=== PATIENT | male | born 1935 | race Caucasian/White ===

== ENCOUNTER 2019-01-08 19:48 | Inpatient (IN) | payer OTHER ==
[~2019-01-08] VITALS: Ht 170.2 cm; Wt 82.7 kg
[~2019-01-08 19:48] MED LIST: COU5T PO; DILT180C66 PO; LISI-600 PO
[2019-01-08] MEDS ORDERED: furosemide 20MG tablet PO ONE (20:50)
[2019-01-08 21:10] LABS: BASOPHILS # (AUTO) 0.1 X10'3 (0-0.2); BASOPHILS % (AUTO) 0.8 % (0-1); EOSINOPHILS # (AUTO) 0.3 X10'3 (0-0.9); EOSINOPHILS % (AUTO) 2.3 % (0-6); HEMATOCRIT 41.5 % (42.0-52.0); HEMOGLOBIN 13.8 g/dl (14.0-17.9); LYMPHOCYTES # (AUTO) 1.4 X10'3 (1.1-4.8); LYMPHOCYTES % (AUTO) 12.5 % (21-51); MEAN CORPUSCULAR HEMOGLOBIN 31.1 PG (27.0-31.0); MEAN CORPUSCULAR HGB CONC 33.3 g/dL (33.0-36.5); MEAN CORPUSCULAR VOLUME 93.4 FL (78-98); MEAN PLATELET VOLUME 7.7 FL (7.4-10.4); MONOCYTES # (AUTO) 1.2 X10'3 (0-0.9); MONOCYTES % (AUTO) 10.4 % (2-12); NEUTROPHILS # (AUTO) 8.5 X10'3 (1.8-7.7); PLATELET COUNT 238 X10'3 (140-440); RED BLOOD COUNT 4.44 X10'6 (4.70-6.10); RED CELL DISTRIBUTION WIDTH 14.2 % (11.5-14.5); WHITE BLOOD COUNT 11.5 X10'3 (4.5-11.0)
[2019-01-08 21:15] LABS: ALANINE AMINOTRANSFERASE 48 U/L (12-78); ALBUMIN 4.2 G/DL (3.4-5.0); ALKALINE PHOSPHATASE 69 IU/L (46-116); ANION GAP 11 (8-16); ASPARTATE AMINO TRANSFERASE 48 U/L (10-37); BILIRUBIN,TOTAL 1.3 MG/DL (0.1-1.0); BLOOD UREA NITROGEN 18 MG/DL (7-18); BUN/CREATININE RATIO 14.2 (5.4-32.0); CALCIUM 8.4 MG/DL (8.5-10.1); CHLORIDE 99 MMOL/L (99-107); CREATININE 1.27 MG/DL (0.60-1.10); GLUCOSE 123 MG/DL (70-104); POTASSIUM 4.4 MMOL/L (3.5-5.1); SODIUM 135 MMOL/L (135-145); TOTAL CARBON DIOXIDE 24.6 MMOL/L (24-32); TOTAL PROTEIN 8.4 G/DL (6.4-8.2); eGFR 54 ML/MIN
[2019-01-08 21:23] LABS: TROPONIN I < 0.04 NG/ML (0.0-0.05)
[2019-01-08 21:26] LABS: CLARITY,URINE CLEAR (Clear); COLOR,URINE YELLOW (Yellow); GLUCOSE, URINE NEGATIVE (Neg); KETONES,URINE TRACE mg/dl (Neg); LEUKOCYTE ESTERASE ,URINE NEGATIVE (Neg); NITRITES, URINE NEGATIVE (Neg); OCCULT BLOOD,URINE NEGATIVE (Neg); PROTEIN,URINE TRACE mg/dl (Neg); UROBILINOGEN,URINE 0.2 E.U/dL (0.2-1.0)
[2019-01-08 21:37] LABS: UA COLLECTION TYPE CLN CATCH MIDSTREAM
[2019-01-08] MEDS ORDERED: magnesium hydroxide 30ml (MOM) UD suspension PO PRN (21:40)
[2019-01-08] MEDS ORDERED: potassium Cl 20 mEq SR tablet PO PRN ×2 (21:40)
[2019-01-08] MEDS ORDERED: acetaminophen 325mg tablet PO PRN ×2 (21:40)
[2019-01-08] MEDS ORDERED: magnesium Cl slow-release 64mg tablet PO PRN (21:40)
[2019-01-08] MEDS ORDERED: magnesium 4gm in 100ml NS 100 ML IV PRN (21:40)
[2019-01-08] MEDS ORDERED: ondansetron/PF 4mg/2ml inj IV PRN (21:40)
[2019-01-08] MEDS ORDERED: magnesium 2GM in 50ml NS 50 ML IV PRN (21:40)
[2019-01-08] MEDS ORDERED: mag hydrox/Alum hydrox/simeth 30ml oral suspension PO PRN (21:40)
[2019-01-08] MEDS ORDERED: nitroGLYCERIN 0.4mg SUBLingual tab SL PRN (21:40)
[2019-01-08] MEDS ORDERED: potassium CL 10mEq/100ml bag 100 ML IV PRN ×2 (21:40)
[2019-01-08 21:41] LABS: BACTERIA,URINE NONE SEEN /HPF (Neg); RBC,URINE NONE SEEN /HPF (0-2); SQUAMOUS EPITHELIAL CELL,UR NONE SEEN /LPF (FEW); WBC,URINE 0-4 /HPF (0-4)
[2019-01-08 21:49] LABS: D-DIMER 0.83 MG/L FEU (0-0.50)
[2019-01-08] MEDS ORDERED: DIGO125T PO (22:54)
[2019-01-08] MEDS ORDERED: FURO-150 PO (22:54)
[2019-01-08] MEDS ORDERED: CEFU500T66 PO (22:54)
[2019-01-08] MEDS ORDERED: ESCI5TAB12 PO (22:54)
[2019-01-08] MEDS ORDERED: METO-467 PO (22:54)
[2019-01-09 00:25] VITALS: BP 153/93
--- NOTE | 2019-01-09 00:25 | NUR ---
PATIENT ADMITTED TO ROOM 354A FROM ER FOR ACUTE CHF. PLACED COMFORTABLE IN BED. VITAL SIGNS TAKEN AND RECORDED.
--- NOTE | 2019-01-09 03:41 | NUR ---
CALLED DR. SHORT ABOUT PATIENT WITH EPISODE OF 3BEAT RUN OF VTACH X2 VITAL SIGNS BP 108/80 HR 71 RR 20 SAT 92 AT 2L NO NEW ORDERS MADE JUST CONTINUE TELE MONITORING.
[2019-01-09 05:29] LABS: BASOPHILS # (AUTO) 0.1 X10'3 (0-0.2); BASOPHILS % (AUTO) 0.7 % (0-1); EOSINOPHILS # (AUTO) 0.2 X10'3 (0-0.9); EOSINOPHILS % (AUTO) 1.5 % (0-6); HEMATOCRIT 36.3 % (42.0-52.0); HEMOGLOBIN 12.1 g/dl (14.0-17.9); LYMPHOCYTES # (AUTO) 1.3 X10'3 (1.1-4.8); LYMPHOCYTES % (AUTO) 11.3 % (21-51); MEAN CORPUSCULAR HEMOGLOBIN 31.2 PG (27.0-31.0); MEAN CORPUSCULAR HGB CONC 33.3 g/dL (33.0-36.5); MEAN CORPUSCULAR VOLUME 93.8 FL (78-98); MEAN PLATELET VOLUME 7.9 FL (7.4-10.4); MONOCYTES # (AUTO) 1.2 X10'3 (0-0.9); MONOCYTES % (AUTO) 10.7 % (2-12); NEUTROPHILS # (AUTO) 8.8 X10'3 (1.8-7.7); NEUTROPHILS % (AUTO) 75.8 % (42-75); PLATELET COUNT 207 X10'3 (140-440); RED BLOOD COUNT 3.87 X10'6 (4.70-6.10); RED CELL DISTRIBUTION WIDTH 14.1 % (11.5-14.5); WHITE BLOOD COUNT 11.7 X10'3 (4.5-11.0)
[2019-01-09 05:44] LABS: ALBUMIN 3.7 G/DL (3.4-5.0); ANION GAP 11 (8-16); BLOOD UREA NITROGEN 17 MG/DL (7-18); BUN/CREATININE RATIO 14.7 (5.4-32.0); CHLORIDE 102 MMOL/L (99-107); CREATININE 1.16 MG/DL (0.60-1.10); GLUCOSE 94 MG/DL (70-104); MAGNESIUM 1.9 MG/DL (1.5-2.4); POTASSIUM 4.2 MMOL/L (3.5-5.1); SODIUM 137 MMOL/L (135-145); TOTAL CARBON DIOXIDE 24.4 MMOL/L (24-32); eGFR 60 ML/MIN
--- NOTE | 2019-01-09 06:30 | NUR ---
Problems reprioritized. Patient report given, questions answered & plan of care reviewed with LEMUEL ZABALA.
[2019-01-09] MEDS: furosemide 40mg/4ml inj IV SCH ×2 (07:55→20:10)
[2019-01-09] MEDS: ESCITALOPRAM OXALATE 5 MG TABLET PO SCH (07:56)
[2019-01-09] MEDS: metoprolol tartrate 50mg tablet PO SCH ×2 (07:56→20:16)
[2019-01-09] MEDS: diltiazem CD 180mg cap (once-daily) PO SCH (07:57)
[2019-01-09] MEDS: digoxin 125mcg (0.125mg) tablet PO SCH (07:57)
[2019-01-09] MEDS ORDERED: furosemide 20MG tablet PO SCH (08:00)
[2019-01-09] MEDS ORDERED: enoxaparin 40mg/0.4ml syringe SQ SCH (08:00)
[2019-01-09] MEDS: K and/or MAG REPLACEMENT MC SCH (08:00)
[2019-01-09] MEDS ORDERED: OLANZAPINE 5 MG TABLET PO PRN (10:10)
[2019-01-09 11:00] VITALS: BP 125/86
[2019-01-09 18:00] VITALS: BP 132/77
--- NOTE | 2019-01-09 18:40 | NUR ---
Problems reprioritized. Patient report given, questions answered & plan of care reviewed with CHAY ZABALA.
--- NOTE | 2019-01-09 18:52 | NUR ---
Patient in room [facility]. I have received report from VJ Ashraf and had the opportunity to ask questions and assume patient care. Addendum: 01/09/19 at 1852 by Mali Meza RN Amended: Links added.
[2019-01-10] VITALS: BP 104/67
[2019-01-10 05:18] LABS: BASOPHILS # (AUTO) 0.1 X10'3 (0-0.2); BASOPHILS % (AUTO) 0.9 % (0-1); EOSINOPHILS # (AUTO) 0.3 X10'3 (0-0.9); EOSINOPHILS % (AUTO) 3.2 % (0-6); HEMATOCRIT 35.1 % (42.0-52.0); HEMOGLOBIN 11.7 g/dl (14.0-17.9); LYMPHOCYTES # (AUTO) 1.6 X10'3 (1.1-4.8); LYMPHOCYTES % (AUTO) 18.3 % (21-51); MEAN CORPUSCULAR HEMOGLOBIN 31.5 PG (27.0-31.0); MEAN CORPUSCULAR HGB CONC 33.5 g/dL (33.0-36.5); MEAN CORPUSCULAR VOLUME 94.1 FL (78-98); MEAN PLATELET VOLUME 7.9 FL (7.4-10.4); MONOCYTES # (AUTO) 1.3 X10'3 (0-0.9); MONOCYTES % (AUTO) 14.3 % (2-12); NEUTROPHILS # (AUTO) 5.6 X10'3 (1.8-7.7); NEUTROPHILS % (AUTO) 63.3 % (42-75); PLATELET COUNT 196 X10'3 (140-440); RED BLOOD COUNT 3.73 X10'6 (4.70-6.10); RED CELL DISTRIBUTION WIDTH 14.4 % (11.5-14.5); WHITE BLOOD COUNT 8.9 X10'3 (4.5-11.0)
[2019-01-10 05:35] LABS: ALBUMIN 3.3 G/DL (3.4-5.0); ANION GAP 9 (8-16); BLOOD UREA NITROGEN 18 MG/DL (7-18); BUN/CREATININE RATIO 13.7 (5.4-32.0); CALCIUM 8.3 MG/DL (8.5-10.1); CHLORIDE 100 MMOL/L (99-107); CREATININE 1.31 MG/DL (0.60-1.10); GLUCOSE 97 MG/DL (70-104); MAGNESIUM 1.9 MG/DL (1.5-2.4); POTASSIUM 3.9 MMOL/L (3.5-5.1); SODIUM 137 MMOL/L (135-145); TOTAL CARBON DIOXIDE 28.4 MMOL/L (24-32); eGFR 52 ML/MIN
--- NOTE | 2019-01-10 05:38 | NUR ---
tele reported pt was having 4 beat Vtach HR on the 80-90's. Spoke with Dr. Stanley with no new order and to make sure K,Mg and Phos are WNL and order for replacement if not.
--- NOTE | 2019-01-10 06:33 | NUR ---
Problems reprioritized. Patient report given, questions answered & plan of care reviewed with VJ Rodrigues. Addendum: 01/10/19 at 0633 by Mali Meza RN Amended: Links added.
--- NOTE | 2019-01-10 06:49 | NUR ---
Patient in room [facility] 354. I have received report from KRYSTAL Conn RN and had the opportunity to ask questions and assume patient care.
[2019-01-10 07:03] VITALS: BP 112/64
[2019-01-10] MEDS: K and/or MAG REPLACEMENT MC SCH (08:00)
[2019-01-10] MEDS: furosemide 40mg/4ml inj IV SCH ×2 (08:04→20:20)
[2019-01-10] MEDS: diltiazem CD 180mg cap (once-daily) PO SCH (08:04)
[2019-01-10] MEDS: metoprolol tartrate 50mg tablet PO SCH ×2 (08:05→20:24)
[2019-01-10] MEDS: ESCITALOPRAM OXALATE 5 MG TABLET PO SCH (08:07)
[2019-01-10] MEDS: digoxin 125mcg (0.125mg) tablet PO SCH (08:08)
--- NOTE | 2019-01-10 12:09 | NUR ---
I AM BEING FLOATED TO TELE MID SHIFT. I WILL GIVE REPORT TO NATI ZABALA.
--- NOTE | 2019-01-10 12:30 | NUR ---
Patient in room [facility] 354. I have received report from Lilia ZABALA and had the opportunity to ask questions and assume patient care.
--- NOTE | 2019-01-10 18:20 | NUR ---
Problems reprioritized. Patient report given, questions answered & plan of care reviewed with Ky ZABALA.
[2019-01-10 18:50] VITALS: BP 117/79
[2019-01-11 06:24] LABS: BASOPHILS # (AUTO) 0.1 X10'3 (0-0.2); BASOPHILS % (AUTO) 1.2 % (0-1); EOSINOPHILS # (AUTO) 0.4 X10'3 (0-0.9); EOSINOPHILS % (AUTO) 3.7 % (0-6); HEMOGLOBIN 12.8 g/dl (14.0-17.9); LYMPHOCYTES # (AUTO) 1.8 X10'3 (1.1-4.8); LYMPHOCYTES % (AUTO) 18.7 % (21-51); MEAN CORPUSCULAR HEMOGLOBIN 31.7 PG (27.0-31.0); MEAN CORPUSCULAR HGB CONC 33.7 g/dL (33.0-36.5); MEAN CORPUSCULAR VOLUME 93.9 FL (78-98); MONOCYTES # (AUTO) 1.5 X10'3 (0-0.9); MONOCYTES % (AUTO) 15.1 % (2-12); NEUTROPHILS % (AUTO) 61.3 % (42-75); PLATELET COUNT 200 X10'3 (140-440); RED BLOOD COUNT 4.05 X10'6 (4.70-6.10); RED CELL DISTRIBUTION WIDTH 14.4 % (11.5-14.5); WHITE BLOOD COUNT 9.7 X10'3 (4.5-11.0)
[2019-01-11 06:32] LABS: ALBUMIN 3.3 G/DL (3.4-5.0); ANION GAP 8 (8-16); BLOOD UREA NITROGEN 18 MG/DL (7-18); BUN/CREATININE RATIO 14.6 (5.4-32.0); CALCIUM 8.7 MG/DL (8.5-10.1); CHLORIDE 101 MMOL/L (99-107); CREATININE 1.23 MG/DL (0.60-1.10); GLUCOSE 85 MG/DL (70-104); POTASSIUM 3.5 MMOL/L (3.5-5.1); SODIUM 139 MMOL/L (135-145); TOTAL CARBON DIOXIDE 30.2 MMOL/L (24-32); eGFR 56 ML/MIN
--- NOTE | 2019-01-11 07:03 | NUR ---
Patient in room [facility] 354. I have received report from Ky ZABALA and had the opportunity to ask questions and assume patient care.
[2019-01-11 07:06] VITALS: BP 114/77
--- NOTE | 2019-01-11 07:08 | NUR ---
Problems reprioritized. Patient report given, questions answered & plan of care reviewed with Karen. Addendum: 01/11/19 at 0708 by Riley Damon RN Amended: Links added.
[2019-01-11] MEDS: ESCITALOPRAM OXALATE 5 MG TABLET PO SCH (07:40)
[2019-01-11] MEDS: digoxin 125mcg (0.125mg) tablet PO SCH (07:41)
[2019-01-11] MEDS: metoprolol tartrate 50mg tablet PO SCH (07:41)
[2019-01-11] MEDS: furosemide 40mg/4ml inj IV SCH (07:41)
[2019-01-11] MEDS: diltiazem CD 180mg cap (once-daily) PO SCH (07:41)
[2019-01-11] MEDS: K and/or MAG REPLACEMENT MC SCH (08:00)
[2019-01-11 08:29] LABS: PLATELET ESTIMATE NORMAL; TOTAL CELLS COUNTED 100
[2019-01-11] MEDS ORDERED: METO-539 PO (10:00)
[2019-01-11 11:01] VITALS: BP 105/69
[2019-01-11] MEDS ORDERED: NITR0.4T51 SL (11:55)
[2019-01-11] MEDS ORDERED: FURO-150 PO (11:55)
--- NOTE | 2019-01-11 14:30 | NUR ---
Patient discharge instructions reviewed with patient and and they verbalized understanding. Patients IV dc'd canula intact, Tele Dc'd. Patient states he has all belongings. Patient will follow up with Dr Muñoz in [address] Doe would like them to follow up about the possability of Life vest. Patient and verbalized understanding. Patient taken to vehicle via wheelchair by JOANIE Pablo.
[2019-01-11] MEDS ORDERED: metoprolol succinate 25mg (24-HOUR) SR. Tablet PO SCH (20:00)
[2019-01-11] MEDS ORDERED: warfarin 5mg tablet PO ONE (21:00)
== END 2019-01-11 14:39 | disposition home or self-care (01) | DRG 293 ==
LOC: ER 19:48 → ED HOLD 23:20 → SUR 3N 01-09 00:20
PROVIDERS: ADMIT Hospitalist; ATTEND Hospitalist
DX: I11.0 Hypertensive heart disease with heart failure (principal); I48.91 Unspecified atrial fibrillation; I50.23 Acute on chronic systolic (congestive) heart failure; F10.10 Alcohol abuse, uncomplicated; F41.9 Anxiety disorder, unspecified; F32.9 Major depressive disorder, single episode, unspecified; R79.1 Abnormal coagulation profile; Z79.01 Long term (current) use of anticoagulants; Z87.891 Personal history of nicotine dependence
CPT/HCPCS: 36415; 71045; 80048; 80053; 80162; 81001; 83605; 83735; 83880; 84145; 84484; 85025; 85379; 85610; 87040; 87081; 93005; 93306; 99285; G0378; J1650; J1940

== ENCOUNTER 2019-05-26 16:41 | Emergency (ER) | payer OTHER ==
[~2019-05-26] VITALS: Ht 171.4 cm; Wt 68.8 kg
[~2019-05-26 16:41] MED LIST changes: +DIGO125T PO; +ESCI5TAB12 PO; +FURO-150 PO; -LISI-600 PO; +METO-539 PO
[2019-05-26 17:01] VITALS: BP 125/87
[2019-05-26 17:24] LABS: BASOPHILS # (AUTO) 0.1 X10'3 (0-0.2); BASOPHILS % (AUTO) 1.5 % (0-1); EOSINOPHILS # (AUTO) 0.3 X10'3 (0-0.9); EOSINOPHILS % (AUTO) 3.5 % (0-6); HEMATOCRIT 43.8 % (42.0-52.0); HEMOGLOBIN 14.6 g/dl (14.0-17.9); LYMPHOCYTES # (AUTO) 1.7 X10'3 (1.1-4.8); LYMPHOCYTES % (AUTO) 22.7 % (21-51); MEAN CORPUSCULAR HEMOGLOBIN 31.2 PG (27.0-31.0); MEAN CORPUSCULAR HGB CONC 33.2 g/dL (33.0-36.5); MEAN CORPUSCULAR VOLUME 93.9 FL (78-98); MONOCYTES # (AUTO) 0.9 X10'3 (0-0.9); MONOCYTES % (AUTO) 12.4 % (2-12); NEUTROPHILS # (AUTO) 4.5 X10'3 (1.8-7.7); NEUTROPHILS % (AUTO) 59.9 % (42-75); PLATELET COUNT 199 X10'3 (140-440); RED BLOOD COUNT 4.66 X10'6 (4.70-6.10); RED CELL DISTRIBUTION WIDTH 15.3 % (11.5-14.5); WHITE BLOOD COUNT 7.5 X10'3 (4.5-11.0)
[2019-05-26] MEDS ORDERED: aspirin 81mg tab.chew PO ONE (17:25)
[2019-05-26 17:37] LABS: ALANINE AMINOTRANSFERASE 29 U/L (12-78); ALBUMIN 3.9 G/DL (3.4-5.0); ALKALINE PHOSPHATASE 97 IU/L (46-116); ANION GAP 7 (8-16); ASPARTATE AMINO TRANSFERASE 31 U/L (10-37); BILIRUBIN,TOTAL 1.5 MG/DL (0.1-1.0); BLOOD UREA NITROGEN 18 MG/DL (7-18); BUN/CREATININE RATIO 12.2 (5.4-32.0); CALCIUM 8.9 MG/DL (8.5-10.1); CHLORIDE 102 MMOL/L (99-107); CREATININE 1.47 MG/DL (0.60-1.10); GLUCOSE 94 MG/DL (70-104); POTASSIUM 3.6 MMOL/L (3.5-5.1); SODIUM 138 MMOL/L (135-145); TOTAL CARBON DIOXIDE 29.2 MMOL/L (24-32); eGFR 46 ML/MIN
[2019-05-26] MEDS ORDERED: DIGO250T PO (17:45)
[2019-05-26] MEDS ORDERED: ESCI10TA61 PO (17:45)
[2019-05-26] MEDS ORDERED: FURO-149 PO (17:45)
[2019-05-26] MEDS ORDERED: METO50TA17 PO (17:45)
[2019-05-26] MEDS ORDERED: WARF2.5T PO (17:45)
[2019-05-26 17:46] LABS: PARTIAL THROMBOPLASTIN TIME 37 SECONDS (22-32)
== END 2019-05-26 18:29 | disposition home or self-care (01) ==
LOC: ER 16:41
DX: R53.83 Other fatigue (principal); I25.10 Atherosclerotic heart disease of native coronary artery without angina pectoris; I48.91 Unspecified atrial fibrillation; R79.9 Abnormal finding of blood chemistry, unspecified; I10 Essential (primary) hypertension; Z95.1 Presence of aortocoronary bypass graft; Z95.0 Presence of cardiac pacemaker; Z87.891 Personal history of nicotine dependence; Z79.01 Long term (current) use of anticoagulants; Z79.899 Other long term (current) drug therapy
CPT/HCPCS: 36415; 71045; 80053; 83735; 83880; 84484; 85025; 85610; 85730; 93005; 99285

== ENCOUNTER 2019-07-07 15:22 | Emergency (ER) | payer OTHER ==
[~2019-07-07] VITALS: Ht 170.2 cm; Wt 72.1 kg
[~2019-07-07 15:22] MED LIST changes: -DIGO125T PO; +DIGO250T PO; -DILT180C66 PO; +ESCI10TA61 PO; -ESCI5TAB12 PO; +FURO-149 PO; -FURO-150 PO; -METO-539 PO; +METO50TA17 PO; +WARF2.5T PO
[2019-07-07] MEDS ORDERED: potassium Cl 10 mEq/100mL bag IV ONE (17:45)
[2019-07-07] MEDS ORDERED: magnesium 2GM in 50ml NS 50 ML IV ONE (17:45)
[2019-07-07 18:07] LABS: ALBUMIN 3.7 G/DL (3.4-5.0); ANION GAP 4 (8-16); BLOOD UREA NITROGEN 28 MG/DL (7-18); BUN/CREATININE RATIO 18.5 (5.4-32.0); CALCIUM 9.5 MG/DL (8.5-10.1); CHLORIDE 97 MMOL/L (99-107); CREATININE 1.51 MG/DL (0.60-1.10); GLUCOSE 80 MG/DL (70-104); MAGNESIUM 2.2 MG/DL (1.5-2.4); SODIUM 139 MMOL/L (135-145); TOTAL CARBON DIOXIDE 37.8 MMOL/L (24-32); eGFR 44 ML/MIN
[2019-07-07 18:11] LABS: POTASSIUM 2.9 MMOL/L (3.5-5.1)
[2019-07-07] MEDS ORDERED: potassium Cl 20 mEq SR tablet PO STA (19:18)
[2019-07-07] MEDS ORDERED: POTA20TA19 PO (19:23)
[2019-07-07 20:22] VITALS: BP 111/74
== END 2019-07-07 20:06 | disposition home or self-care (01) ==
LOC: ER 15:23
DX: E87.6 Hypokalemia (principal); I48.91 Unspecified atrial fibrillation; I25.10 Atherosclerotic heart disease of native coronary artery without angina pectoris; I10 Essential (primary) hypertension; Z95.0 Presence of cardiac pacemaker; Z79.01 Long term (current) use of anticoagulants; Z79.899 Other long term (current) drug therapy
CPT/HCPCS: 36415; 80048; 83735; 96365; 96366; 96368; 99284; J3475; J3480

== ENCOUNTER 2019-08-21 11:55 | Emergency (ER) | payer OTHER, MEDICARE ==
[~2019-08-21] VITALS: Ht 170.2 cm; Wt 79.5 kg
[~2019-08-21 11:55] MED LIST changes: -COU5T PO; +WARF-113 PO; -WARF2.5T PO; +WARF2.5T2 PO
[2019-08-21 12:06] VITALS: BP 109/86
[2019-08-21] MEDS ORDERED: FURO-150 PO (12:17)
== END 2019-08-21 12:24 | disposition home or self-care (01) ==
LOC: ER 11:56
DX: I10 Essential (primary) hypertension (principal); I48.91 Unspecified atrial fibrillation; I25.10 Atherosclerotic heart disease of native coronary artery without angina pectoris; Z95.0 Presence of cardiac pacemaker; Z79.01 Long term (current) use of anticoagulants; Z79.899 Other long term (current) drug therapy
CPT/HCPCS: 99281

== ENCOUNTER 2019-09-03 11:32 | Emergency (ER) | payer OTHER, MEDICARE ==
[~2019-09-03] VITALS: Ht 170.2 cm; Wt 80.9 kg
[2019-09-03 12:05] LABS: BASOPHILS # (AUTO) 0.1 X10'3 (0-0.2); EOSINOPHILS # (AUTO) 0.4 X10'3 (0-0.9); EOSINOPHILS % (AUTO) 4.3 % (0-6); HEMATOCRIT 45.1 % (42.0-52.0); LYMPHOCYTES # (AUTO) 1.6 X10'3 (1.1-4.8); LYMPHOCYTES % (AUTO) 17.9 % (21-51); MEAN CORPUSCULAR HEMOGLOBIN 31.9 PG (27.0-31.0); MEAN CORPUSCULAR HGB CONC 33.3 g/dL (33.0-36.5); MEAN CORPUSCULAR VOLUME 95.8 FL (78-98); MEAN PLATELET VOLUME 7.8 FL (7.4-10.4); MONOCYTES # (AUTO) 1.3 X10'3 (0-0.9); MONOCYTES % (AUTO) 14.7 % (2-12); NEUTROPHILS # (AUTO) 5.4 X10'3 (1.8-7.7); NEUTROPHILS % (AUTO) 62.1 % (42-75); PLATELET COUNT 180 X10'3 (140-440); RED BLOOD COUNT 4.71 X10'6 (4.70-6.10); RED CELL DISTRIBUTION WIDTH 16.4 % (11.5-14.5); WHITE BLOOD COUNT 8.7 X10'3 (4.5-11.0)
[2019-09-03 12:24] LABS: ALANINE AMINOTRANSFERASE 37 U/L (12-78); ALBUMIN 3.5 G/DL (3.4-5.0); ALBUMIN/GLOBULIN RATIO 0.9 (1.1-1.5); ALKALINE PHOSPHATASE 122 IU/L (46-116); ANION GAP 4 (8-16); ASPARTATE AMINO TRANSFERASE 37 U/L (10-37); BILIRUBIN,TOTAL 1.7 MG/DL (0.1-1.0); BLOOD UREA NITROGEN 29 MG/DL (7-18); BUN/CREATININE RATIO 17.3 (5.4-32.0); CALCIUM 8.6 MG/DL (8.5-10.1); CHLORIDE 101 MMOL/L (99-107); CREATININE 1.68 MG/DL (0.60-1.10); GLUCOSE 111 MG/DL (70-104); POTASSIUM 4.7 MMOL/L (3.5-5.1); SODIUM 134 MMOL/L (135-145); TOTAL CARBON DIOXIDE 29.4 MMOL/L (24-32); TOTAL PROTEIN 7.4 G/DL (6.4-8.2); eGFR 39 ML/MIN
[2019-09-03 12:31] LABS: MAGNESIUM 2.3 MG/DL (1.5-2.4)
[2019-09-03] MEDS ORDERED: SPIR25TA5 PO (12:44)
[2019-09-03] MEDS ORDERED: GABA-530 PO (12:44)
[2019-09-03 13:06] VITALS: BP 116/91
== END 2019-09-03 13:09 | disposition home or self-care (01) ==
LOC: ER 11:33
DX: R18.8 Other ascites (principal); R06.02 Shortness of breath; R14.0 Abdominal distension (gaseous); I48.91 Unspecified atrial fibrillation; I25.10 Atherosclerotic heart disease of native coronary artery without angina pectoris; I10 Essential (primary) hypertension; F10.10 Alcohol abuse, uncomplicated; Z95.0 Presence of cardiac pacemaker; Z79.899 Other long term (current) drug therapy; Y90.9 Presence of alcohol in blood, level not specified
CPT/HCPCS: 36415; 71045; 80053; 83735; 83880; 84484; 85025; 85610; 93005; 99285

== ENCOUNTER 2021-11-08 14:32 | Emergency (ER) | payer OTHER ==
[~2021-11-08] VITALS: Ht 170.2 cm; Wt 82.3 kg
[~2021-11-08 14:32] MED LIST changes: +ESCI-8 PO; -ESCI10TA61 PO; +GABA-530 PO; +SPIR25TA5 PO
[2021-11-08 15:16] LABS: BASOPHILS # (AUTO) 0.1 X10'3 (0-0.2); BASOPHILS % (AUTO) 1.2 % (0-1); EOSINOPHILS # (AUTO) 0.3 X10'3 (0-0.9); EOSINOPHILS % (AUTO) 3.1 % (0-6); HEMATOCRIT 39.9 % (42.0-52.0); HEMOGLOBIN 13.5 g/dl (14.0-17.9); LYMPHOCYTES # (AUTO) 1.3 X10'3 (1.1-4.8); LYMPHOCYTES % (AUTO) 13.2 % (21-51); MEAN CORPUSCULAR HEMOGLOBIN 30.8 PG (27.0-31.0); MEAN CORPUSCULAR HGB CONC 33.9 g/dL (33.0-36.5); MEAN CORPUSCULAR VOLUME 90.9 FL (78-98); MEAN PLATELET VOLUME 7.4 FL (7.4-10.4); MONOCYTES # (AUTO) 1.5 X10'3 (0-0.9); MONOCYTES % (AUTO) 15.1 % (2-12); NEUTROPHILS # (AUTO) 6.7 X10'3 (1.8-7.7); NEUTROPHILS % (AUTO) 67.4 % (42-75); PLATELET COUNT 213 X10'3 (140-440); RED BLOOD COUNT 4.39 X10'6 (4.70-6.10); RED CELL DISTRIBUTION WIDTH 14.3 % (11.5-14.5)
[2021-11-08 15:25] LABS: ALANINE AMINOTRANSFERASE 23 U/L (12-78); ALBUMIN 2.8 G/DL (3.4-5.0); ALBUMIN/GLOBULIN RATIO 0.8 (1.1-1.5); ALKALINE PHOSPHATASE 75 IU/L (46-116); ANION GAP 8 (8-16); ASPARTATE AMINO TRANSFERASE 23 U/L (10-37); BILIRUBIN,TOTAL 0.7 MG/DL (0.1-1.0); BLOOD UREA NITROGEN 32 MG/DL (7-18); BUN/CREATININE RATIO 18.1 (5.4-32.0); CALCIUM 7.2 MG/DL (8.5-10.1); CHLORIDE 100 MMOL/L (99-107); CREATININE 1.77 MG/DL (0.60-1.10); GLUCOSE 87 MG/DL (70-104); POTASSIUM 3.6 MMOL/L (3.5-5.1); SODIUM 134 MMOL/L (135-145); TOTAL CARBON DIOXIDE 25.7 MMOL/L (24-32); TOTAL PROTEIN 6.5 G/DL (6.4-8.2); eGFR 37 ML/MIN
[2021-11-08] MEDS ORDERED: normal saline 1000ML IV soln IVB ONE (15:25)
[2021-11-08 15:36] LABS: TOTAL CELLS COUNTED 100
[2021-11-08 15:37] LABS: PLATELET ESTIMATE NORMAL
[2021-11-08] MEDS ORDERED: EMPA10TA PO (16:21)
[2021-11-08] MEDS ORDERED: SPIR25TA5 PO (16:21)
[2021-11-08] MEDS ORDERED: GABA-530 PO (16:29)
[2021-11-08] MEDS ORDERED: LEVO25TA7 PO (16:29)
[2021-11-08 16:35] LABS: D-DIMER 0.62 MG/L FEU (0-0.50)
[2021-11-08] MEDS ORDERED: LOSA25TA41 PO (16:36)
[2021-11-08] MEDS ORDERED: METO-411 PO (16:40)
[2021-11-08] MEDS ORDERED: magnesium Cl slow-release 64mg tablet PO PRN (17:45)
[2021-11-08] MEDS ORDERED: potassium CL 10mEq/100ml bag 100 ML IV PRN (17:45)
[2021-11-08] MEDS ORDERED: ondansetron/PF 4mg/2ml inj IV PRN (17:45)
[2021-11-08] MEDS ORDERED: POTASSIUM BICARB 20meq eff tab 20 MEQ TABLET.EFF PO PRN ×2 (17:45)
[2021-11-08] MEDS ORDERED: magnesium 4gm in 100ml NS 100 ML IV PRN (17:45)
[2021-11-08] MEDS ORDERED: magnesium 2GM in 50ml NS 50 ML IV PRN (17:45)
[2021-11-08] MEDS ORDERED: acetaminophen 325mg tablet PO PRN ×2 (17:45)
[2021-11-08] MEDS ORDERED: normal saline 1000ml 1,000 ML IV SCH (17:45)
--- NOTE | 2021-11-08 18:00 | NUR ---
DR. CORBETT AT BEDSIDE TO EXPLAIN PT ADMISSION. PT REFUSING AT THIS TIME. WOULD LIKE TO LEAVE AMA. AMA FORM SIGNED BY PT, DR. CORBETT, ISAI, NAVEED AND VJ MAURICIO.
[2021-11-08 18:12] VITALS: BP 105/62
[2021-11-08] MEDS ORDERED: non-formulary drug (Metoprolol Succinate 0.5 TAB) PO SCH (20:00)
[2021-11-08] MEDS ORDERED: K and/or MAG REPLACEMENT MC SCH (20:00)
[2021-11-08] MEDS ORDERED: heparin, porcine 5000 units/ml vial SQ SCH (20:00)
[2021-11-08] MEDS ORDERED: ESCITALOPRAM OXALATE 20 MG PO SCH (21:00)
[2021-11-08] MEDS ORDERED: gabapentin 100mg capsule PO SCH (21:00)
[2021-11-09] MEDS ORDERED: levoTHYROXINE 25mcg tablet PO SCH (08:00)
== END 2021-11-08 18:15 | disposition left against medical advice (07) ==
LOC: ER 14:33
DX: I95.9 Hypotension, unspecified (principal); R42 Dizziness and giddiness; I11.0 Hypertensive heart disease with heart failure; I50.20 Unspecified systolic (congestive) heart failure
CPT/HCPCS: 36415; 71045; 80053; 83880; 84484; 85007; 85025; 85379; 93005; 96360; 99285; J7030

== ENCOUNTER 2023-01-03 16:36 | Inpatient (IN) | payer OTHER, MEDICARE ==
[~2023-01-03] VITALS: Ht 172.7 cm; Wt 82.9 kg
[~2023-01-03 16:36] MED LIST changes: -DIGO250T PO; +EMPA10TA PO; -ESCI-8 PO; +ESCI20TA39 PO; +LEVO25TA7 PO; +METO-395 PO; -METO50TA17 PO; -WARF-113 PO; +WARF-55 PO; -WARF2.5T2 PO
--- NOTE | 2023-01-03 21:13 | NUR ---
11 BEAT RUN VTACH, STRIP PRINTED AND SHOWN TO DR ALVARADO. PT HAVING MULTIFOCAL PVC WITH COUPLETS AND MANY 4-6 BEAT RUNS OF VTACH. RECIEVED VERBAL ORDER FOR 2GM MAG IV GIVE OVER 15 MIN.
[2023-01-03] MEDS ORDERED: normal saline 1000ml 1,000 ML IV ONE (21:15)
[2023-01-03] MEDS ORDERED: magnesium 2GM in 50ml NS 50 ML IV ONE (21:15)
[2023-01-03] MEDS ORDERED: TETanus/Pertussis (Acell)/Diphther VAC/PF (Tdap-Adult) 0.5ml syringe IMVAC ONE (21:20)
--- NOTE | 2023-01-03 21:46 | NUR ---
PT needs magnesiom prior to CT.
[2023-01-03 21:59] LABS: HEMATOCRIT 43.1 % (42.0-52.0); HEMOGLOBIN 14.2 g/dl (14.0-17.9); MEAN CORPUSCULAR HEMOGLOBIN 31.9 PG (27.0-31.0); MEAN CORPUSCULAR HGB CONC 32.9 g/dL (33.0-36.5); MEAN CORPUSCULAR VOLUME 96.8 FL (78-98); MEAN PLATELET VOLUME 7.5 FL (7.4-10.4); PLATELET COUNT 227 X10'3 (140-440); RED BLOOD COUNT 4.45 X10'6 (4.70-6.10); WHITE BLOOD COUNT 7.6 X10'3 (4.5-11.0)
[2023-01-03 22:06] LABS: ALANINE AMINOTRANSFERASE 21 U/L (12-78); ALBUMIN 3.2 G/DL (3.4-5.0); ALBUMIN/GLOBULIN RATIO 0.7 (1.1-1.5); ALKALINE PHOSPHATASE 175 IU/L (46-116); ANION GAP 8 (8-16); ASPARTATE AMINO TRANSFERASE 36 U/L (10-37); BILIRUBIN,TOTAL 2.1 MG/DL (0.1-1.0); BLOOD UREA NITROGEN 37 MG/DL (7-18); BUN/CREATININE RATIO 19.8 (10.0-20.0); CALCIUM 9.1 MG/DL (8.5-10.1); CHLORIDE 89 MMOL/L (99-107); CREATININE 1.87 MG/DL (0.60-1.10); GLUCOSE 96 MG/DL (70-104); POTASSIUM 3.7 MMOL/L (3.5-5.1); SODIUM 129 MMOL/L (135-145); TOTAL CARBON DIOXIDE 32.3 MMOL/L (24-32); eCRCL 27 ML/MIN; eGFR 34 ML/MIN
[2023-01-03 22:08] LABS: MAGNESIUM 2.9 MG/DL (1.5-2.4)
[2023-01-03 22:33] LABS: BILIRUBIN,URINE NEGATIVE (Neg); CLARITY,URINE CLEAR (Clear); COLOR,URINE YELLOW (Yellow); GLUCOSE, URINE 250 mg/dl (Neg); KETONES,URINE NEGATIVE (Neg); LEUKOCYTE ESTERASE ,URINE NEGATIVE (Neg); NITRITES, URINE NEGATIVE (Neg); OCCULT BLOOD,URINE TRACE-INTACT (Neg); PROTEIN,URINE NEGATIVE (Neg)
[2023-01-03 22:42] LABS: UA COLLECTION TYPE CLN CATCH MIDSTREAM
[2023-01-03 22:44] LABS: BACTERIA,URINE NONE SEEN /HPF (Neg); RBC,URINE 0-2 /HPF (0-2); SQUAMOUS EPITHELIAL CELL,UR FEW /LPF (FEW); WBC,URINE NONE SEEN /HPF (0-4)
[2023-01-03 22:45] LABS: MUCUS STRANDS FEW /LPF (Neg)
[2023-01-03 22:59] LABS: TOTAL CELLS COUNTED 100
[2023-01-03 23:00] LABS: PLATELET ESTIMATE NORMAL
[2023-01-03 23:03] LABS: LARGE PLATELETS FEW
[2023-01-04] MEDS ORDERED: ceFAZolin/D5W- 1GM premix 50 ML IV ONE
[2023-01-04] MEDS ORDERED: magnesium hydroxide 30ml (MOM) UD suspension PO PRN (00:20)
[2023-01-04] MEDS ORDERED: morphine 2 MG/ML inj. syringe IV PRN (00:20)
[2023-01-04] MEDS ORDERED: ondansetron 4mg rapidly disintigrating tab PO PRN (00:20)
[2023-01-04] MEDS ORDERED: diphenhydrAMINE 50 mg/ml inj IV PRN (00:20)
[2023-01-04] MEDS ORDERED: bisacodyl 10mg suppository rectal RC PRN (00:20)
[2023-01-04] MEDS ORDERED: ipratropium/albuterol 3ml nebule NEB PRN (00:20)
[2023-01-04] MEDS ORDERED: acetaminophen 650mg rectal suppository RC PRN (00:20)
[2023-01-04] MEDS ORDERED: mag hydrox/Alum hydrox/simeth 30ml oral suspension PO PRN (00:20)
[2023-01-04] MEDS ORDERED: ondansetron/PF 4mg/2ml inj IV PRN (00:20)
[2023-01-04] MEDS: normal saline 1000ml 1,000 ML IV SCH (00:20)
[2023-01-04] MEDS ORDERED: HYDROcodone/acetaminophen 5mg/325mg tablet PO PRN (00:20)
[2023-01-04] MEDS ORDERED: diphenhydrAMINE 25mg capsule PO PRN (00:20)
[2023-01-04] MEDS ORDERED: acetaminophen 325mg tablet PO PRN ×2 (00:20)
[2023-01-04 01:13] VITALS: PULSE 80; RESP 20
[2023-01-04 01:20] LABS: APTT 44 SECONDS (22-32); D-DIMER 1.84 MG/L FEU (0-0.50); INR 2.5 INR; PROTHROMBIN TIME 25.1 SECONDS (9.0-12.0)
[2023-01-04 01:28] LABS: PHOSPHORUS 4.1 MG/DL (2.3-4.5)
--- NOTE | 2023-01-04 04:30 | NUR ---
pt constantly getting out of bed asking where kelton is, nurses attempting to redirect back to bed. pt sitting up in chair. pt pulling monitor leads off. IV pulled out, IV replaced in L AC.
--- NOTE | 2023-01-04 05:12 | NUR ---
pt had large BM in commode.
--- NOTE | 2023-01-04 08:05 | NUR ---
Patient in room ED 16. I have received report from Lily ZABALA and had the opportunity to ask questions and assume patient care.
--- NOTE | 2023-01-04 08:15 | NUR ---
Report called to Gabrielle RN on PCU. Patient transferred upstairs via gurney and had all belongings with.
[2023-01-04] MEDS: pantoprazole 40mg Tablet.DR PO SCH (10:00)
[2023-01-04] MEDS: docusate sod 100mg capsule PO SCH ×2 (10:00→21:38)
[2023-01-04 11:00] VITALS: BP 110/77; PULSE 100; RESP 22; TEMP 97.7; O2SAT 96
--- NOTE | 2023-01-04 11:00 | NUR ---
INR lab result is between 2-3 Pt. Home Medication Coumadin is reconciled.
--- NOTE | 2023-01-04 11:00 | NUR ---
IV site and wounds are covered with kerlex gauze to prevent Pt. from touching / disrupting sites.
--- NOTE | 2023-01-04 11:33 | NUR ---
Skin Tear from Electrode removal. Dressing is placed. Photos to follow. Family is aware.
[2023-01-04] MEDS ORDERED: FURO-150 PO (12:29)
[2023-01-04] MEDS ORDERED: WARF-55 PO ×2 (12:41)
[2023-01-04] MEDS ORDERED: ESCITALOPRAM OXALATE 5 MG TABLET PO SCH (14:00)
[2023-01-04 15:00] VITALS: BP 108/79; PULSE 106; RESP 18; TEMP 97.5; O2SAT 100
[2023-01-04 15:15] VITALS: PULSE 101; RESP 18; O2SAT 95
--- NOTE | 2023-01-04 17:03 | NUR ---
Home C-pap to bedside.
--- NOTE | 2023-01-04 17:06 | NUR ---
Frequently gets out of bed without assistance, is unsteady, but turns off alarm on his own. Sitter requested.
[2023-01-04 18:00] VITALS: BP 103/74; PULSE 96; RESP 23; TEMP 97.6; O2SAT 93
[2023-01-04] MEDS ORDERED: temazepam 15mg capsule PO PRN (21:00)
[2023-01-04] MEDS: metoprolol succinate 25mg (24-HOUR) SR. Tablet PO SCH (21:38)
[2023-01-04] MEDS: ESCITALOPRAM OXALATE 5 MG TABLET PO SCH (21:38)
[2023-01-04] MEDS: gabapentin 100mg capsule PO SCH (21:38)
[2023-01-04 22:00] VITALS: BP 100/60; PULSE 100; RESP 18; TEMP 97.6; O2SAT 94
[2023-01-05] VITALS (10 sets, daily range): BP systolic 103–163; BP diastolic 67–84; PULSE 77–120; RESP 18–22; TEMP 97.3–98.3; O2SAT 93–99
[2023-01-05 06:22] LABS: BASOPHILS # (AUTO) 0.1 X10'3 (0-0.2); BASOPHILS % (AUTO) 1.1 % (0-1); EOSINOPHILS # (AUTO) 0.3 X10'3 (0-0.9); EOSINOPHILS % (AUTO) 3.6 % (0-6); HEMATOCRIT 39.7 % (42.0-52.0); HEMOGLOBIN 13.3 g/dl (14.0-17.9); LYMPHOCYTES # (AUTO) 0.8 X10'3 (1.1-4.8); LYMPHOCYTES % (AUTO) 10.6 % (21-51); MEAN CORPUSCULAR HEMOGLOBIN 32.4 PG (27.0-31.0); MEAN CORPUSCULAR HGB CONC 33.5 g/dL (33.0-36.5); MEAN CORPUSCULAR VOLUME 96.9 FL (78-98); MEAN PLATELET VOLUME 7.6 FL (7.4-10.4); MONOCYTES # (AUTO) 1.4 X10'3 (0-0.9); MONOCYTES % (AUTO) 17.7 % (2-12); NEUTROPHILS # (AUTO) 5.1 X10'3 (1.8-7.7); PLATELET COUNT 199 X10'3 (140-440); RED CELL DISTRIBUTION WIDTH 14.6 % (11.5-14.5); WHITE BLOOD COUNT 7.6 X10'3 (4.5-11.0)
[2023-01-05 06:35] LABS: ALANINE AMINOTRANSFERASE 16 U/L (12-78); ALBUMIN 2.8 G/DL (3.4-5.0); ALBUMIN/GLOBULIN RATIO 0.6 (1.1-1.5); ALKALINE PHOSPHATASE 150 IU/L (46-116); ANION GAP 6 (8-16); ASPARTATE AMINO TRANSFERASE 32 U/L (10-37); BILIRUBIN,TOTAL 2.3 MG/DL (0.1-1.0); BLOOD UREA NITROGEN 34 MG/DL (7-18); BUN/CREATININE RATIO 18.3 (10.0-20.0); CALCIUM 8.9 MG/DL (8.5-10.1); CHLORIDE 91 MMOL/L (99-107); CREATININE 1.86 MG/DL (0.60-1.10); GLUCOSE 93 MG/DL (70-104); POTASSIUM 3.6 MMOL/L (3.5-5.1); SODIUM 128 MMOL/L (135-145); TOTAL CARBON DIOXIDE 31.4 MMOL/L (24-32); TOTAL PROTEIN 7.5 G/DL (6.4-8.2); eCRCL 27 ML/MIN; eGFR 35 ML/MIN
--- NOTE | 2023-01-05 06:42 | NUR ---
Patient in room PCU 3023. I have received report from Wero ZABALA and had the opportunity to ask questions and assume patient care.
[2023-01-05] MEDS ORDERED: furosemide 40mg tablet PO SCH (08:00)
[2023-01-05] MEDS: pantoprazole 40mg Tablet.DR PO SCH (08:40)
[2023-01-05] MEDS: docusate sod 100mg capsule PO SCH ×2 (08:40→20:12)
[2023-01-05] MEDS: levoTHYROXINE 25mcg tablet PO SCH (08:41)
[2023-01-05] MEDS: spironolactone 25 MG tablet PO SCH (08:41)
[2023-01-05] MEDS: EMPAGLIFLOZIN 10 MG TABLET PO SCH (08:42)
[2023-01-05] MEDS: metoprolol succinate 25mg (24-HOUR) SR. Tablet PO SCH ×2 (08:42→20:12)
--- NOTE | 2023-01-05 15:17 | NUR ---
PAGER ID: [phone] MESSAGE: Angela LeeannaGayatri, Pt had a positive MRSA screen from his nares. Iain [id number]
--- NOTE | 2023-01-05 18:37 | NUR ---
Problems reprioritized. Patient report given, questions answered & plan of care reviewed with Romulo ANDERSON.
[2023-01-05] MEDS: furosemide 20 MG/2 ML vial IV SCH (20:07)
[2023-01-05] MEDS: gabapentin 100mg capsule PO SCH (20:12)
[2023-01-05] MEDS: ESCITALOPRAM OXALATE 5 MG TABLET PO SCH (20:12)
[2023-01-06] VITALS (11 sets, daily range): BP systolic 89–148; BP diastolic 61–79; PULSE 77–102; RESP 16–22; TEMP 96.3–98; O2SAT 91–97
[2023-01-06] MEDS: normal saline 1000ml 1,000 ML IV SCH (00:20)
--- NOTE | 2023-01-06 05:16 | NUR ---
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
[2023-01-06 06:03] LABS: BASOPHILS # (AUTO) 0.1 X10'3 (0-0.2); BASOPHILS % (AUTO) 1.2 % (0-1); EOSINOPHILS # (AUTO) 0.3 X10'3 (0-0.9); EOSINOPHILS % (AUTO) 3.9 % (0-6); HEMATOCRIT 40.6 % (42.0-52.0); HEMOGLOBIN 13.5 g/dl (14.0-17.9); LYMPHOCYTES # (AUTO) 0.7 X10'3 (1.1-4.8); LYMPHOCYTES % (AUTO) 9.5 % (21-51); MEAN CORPUSCULAR HEMOGLOBIN 32.6 PG (27.0-31.0); MEAN CORPUSCULAR HGB CONC 33.3 g/dL (33.0-36.5); MEAN CORPUSCULAR VOLUME 97.7 FL (78-98); MEAN PLATELET VOLUME 7.7 FL (7.4-10.4); MONOCYTES # (AUTO) 1.3 X10'3 (0-0.9); MONOCYTES % (AUTO) 17.7 % (2-12); NEUTROPHILS # (AUTO) 4.9 X10'3 (1.8-7.7); NEUTROPHILS % (AUTO) 67.7 % (42-75); PLATELET COUNT 214 X10'3 (140-440); RED BLOOD COUNT 4.15 X10'6 (4.70-6.10); RED CELL DISTRIBUTION WIDTH 15.5 % (11.5-14.5); WHITE BLOOD COUNT 7.3 X10'3 (4.5-11.0)
--- NOTE | 2023-01-06 06:27 | NUR ---
Patient in room PCU 3023. I have received report from Romulo ANDERSON and had the opportunity to ask questions and assume patient care.
[2023-01-06 06:46] LABS: ALANINE AMINOTRANSFERASE 17 U/L (12-78); ALBUMIN/GLOBULIN RATIO 0.7 (1.1-1.5); ALKALINE PHOSPHATASE 153 IU/L (46-116); ANION GAP 9 (8-16); ASPARTATE AMINO TRANSFERASE 30 U/L (10-37); BILIRUBIN,TOTAL 2.5 MG/DL (0.1-1.0); BLOOD UREA NITROGEN 32 MG/DL (7-18); BUN/CREATININE RATIO 18.4 (10.0-20.0); CALCIUM 8.8 MG/DL (8.5-10.1); CHLORIDE 90 MMOL/L (99-107); CREATININE 1.74 MG/DL (0.60-1.10); GLUCOSE 96 MG/DL (70-104); POTASSIUM 3.3 MMOL/L (3.5-5.1); SODIUM 130 MMOL/L (135-145); TOTAL CARBON DIOXIDE 31.5 MMOL/L (24-32); TOTAL PROTEIN 7.4 G/DL (6.4-8.2); eCRCL 29 ML/MIN; eGFR 37 ML/MIN
[2023-01-06 07:08] LABS: HYPOCHROMASIA 1+; PLATELET ESTIMATE NORMAL; TARGET CELLS FEW; TOTAL CELLS COUNTED 100
[2023-01-06] MEDS: pantoprazole 40mg Tablet.DR PO SCH (08:50)
[2023-01-06] MEDS: docusate sod 100mg capsule PO SCH ×2 (08:50→20:47)
[2023-01-06] MEDS: EMPAGLIFLOZIN 10 MG TABLET PO SCH (08:50)
[2023-01-06] MEDS: levoTHYROXINE 25mcg tablet PO SCH (08:50)
[2023-01-06] MEDS: metoprolol succinate 25mg (24-HOUR) SR. Tablet PO SCH ×2 (08:50→20:47)
[2023-01-06] MEDS: furosemide 20 MG/2 ML vial IV SCH ×2 (08:50→20:47)
[2023-01-06] MEDS: spironolactone 25 MG tablet PO SCH (08:51)
[2023-01-06] MEDS ORDERED: WARF2.5T82 PO (10:02)
[2023-01-06] MEDS ORDERED: SENN-263 PO (10:02)
[2023-01-06] MEDS ORDERED: potassium Cl 40MEQ/1/2NS 520ml 520 ML IV PRN (10:10)
[2023-01-06] MEDS ORDERED: magnesium 2GM in 50ml NS 50 ML IV PRN (10:10)
[2023-01-06] MEDS ORDERED: magnesium Cl slow-release 64mg tablet PO PRN (10:10)
[2023-01-06] MEDS ORDERED: magnesium 4gm in 100ml NS 100 ML IV PRN (10:10)
[2023-01-06] MEDS ORDERED: potassium Cl 20 mEq SR tablet PO PRN (10:10)
[2023-01-06] MEDS ORDERED: gabapentin 100mg capsule PO PRN (10:19)
[2023-01-06] MEDS: potassium Cl 20 mEq SR tablet PO PRN ×3 (10:54→20:47)
--- NOTE | 2023-01-06 14:08 | NUR ---
PRESSURE ULCER EDUCATION: DEFINITION: A pressure ulcer is an area of skin that breaks down when you stay in one position too long. The constant pressure against the skin reduces the blood flow to that area and the affected tissue dies. CAUSES: "Being bedridden or in a wheelchair "Fragile skin "Having a chronic condition, such as diabetes or vascular disease "Inability to move certain parts of your body without assistance "Older age "Incontinence of urine or stool SYMPTOMS: "A reddened area that DOES NOT turn white when pressed on - this can be the beginning of a pressure ulcer "A blister, deep sore or a crater - these can be advanced pressure ulcers FIRST AID: "Relieve the pressure on this area "Keep the area clean and dry "Call your primary doctor if you see any of the above symptoms "DO NOT massage the area "DO NOT use a donut shaped or ring shaped pillow- these actually interfere with the blood flow and cause complications PREVENTION: "Check for pressure ulcers everyday "Change position at least every two hours to relieve pressure "Use items that help relieve pressure- pillows, sheepskin, foam padding, and powders. "Keep skin clean and dry "Eat healthy well balanced meals "Exercise daily IF YOU SEE ANY OF THESE SYMPTOMS WHILE IN THE HOSPITAL - TELL YOUR NURSE IMMEDIATELY. IF YOU SEE ANY OF THESE SYMPTOMS WHILE AT HOME OR HAVE ANY QUESTIONS OR CONCERNS ABOUT PRESSURE ULCERS - CALL YOUR PRIMARY DOCTOR IMMEDIATELY. Addendum: 01/06/23 at 1409 by Dakota Samson RN Amended: Links added.
--- NOTE | 2023-01-06 18:25 | NUR ---
Problems reprioritized. Patient report given, questions answered & plan of care reviewed with Tiana ZABALA.
[2023-01-06] MEDS: K and/or MAG REPLACEMENT MC SCH (20:00)
[2023-01-06] MEDS: mupirocin 2% nasal ointment 1gm UD NS SCH (20:47)
[2023-01-06] MEDS: ESCITALOPRAM OXALATE 5 MG TABLET PO SCH (20:47)
--- NOTE | 2023-01-07 06:15 | NUR ---
Patient in room PCU 3023. I have received report from Tiana ZABALA and had the opportunity to ask questions and assume patient care.
--- NOTE | 2023-01-07 06:19 | NUR ---
Problems reprioritized. Patient report given, questions answered & plan of care reviewed with Anne ANDERSON. Pt stable at change of shift.
[2023-01-07 06:54] LABS: BASOPHILS # (AUTO) 0.1 X10'3 (0-0.2); BASOPHILS % (AUTO) 1.1 % (0-1); EOSINOPHILS # (AUTO) 0.2 X10'3 (0-0.9); EOSINOPHILS % (AUTO) 3.3 % (0-6); HEMATOCRIT 38.3 % (42.0-52.0); LYMPHOCYTES # (AUTO) 0.7 X10'3 (1.1-4.8); LYMPHOCYTES % (AUTO) 8.9 % (21-51); MEAN CORPUSCULAR HGB CONC 34.1 g/dL (33.0-36.5); MEAN CORPUSCULAR VOLUME 96.9 FL (78-98); MEAN PLATELET VOLUME 7.3 FL (7.4-10.4); MONOCYTES # (AUTO) 1.3 X10'3 (0-0.9); NEUTROPHILS # (AUTO) 5.2 X10'3 (1.8-7.7); NEUTROPHILS % (AUTO) 68.7 % (42-75); PLATELET COUNT 195 X10'3 (140-440); RED BLOOD COUNT 3.95 X10'6 (4.70-6.10); RED CELL DISTRIBUTION WIDTH 14.8 % (11.5-14.5); WHITE BLOOD COUNT 7.5 X10'3 (4.5-11.0)
[2023-01-07 07:00] VITALS: BP 106/77; PULSE 90; RESP 18; TEMP 97.4; O2SAT 96
[2023-01-07 07:26] LABS: ALANINE AMINOTRANSFERASE 17 U/L (12-78); ALBUMIN 2.9 G/DL (3.4-5.0); ALBUMIN/GLOBULIN RATIO 0.7 (1.1-1.5); ALKALINE PHOSPHATASE 142 IU/L (46-116); ANION GAP 8 (8-16); ASPARTATE AMINO TRANSFERASE 29 U/L (10-37); BILIRUBIN,TOTAL 2.6 MG/DL (0.1-1.0); BLOOD UREA NITROGEN 34 MG/DL (7-18); BUN/CREATININE RATIO 19.7 (10.0-20.0); CALCIUM 8.7 MG/DL (8.5-10.1); CHLORIDE 92 MMOL/L (99-107); CREATININE 1.73 MG/DL (0.60-1.10); GLUCOSE 90 MG/DL (70-104); POTASSIUM 3.8 MMOL/L (3.5-5.1); SODIUM 130 MMOL/L (135-145); TOTAL PROTEIN 6.9 G/DL (6.4-8.2); eCRCL 29 ML/MIN; eGFR 38 ML/MIN
[2023-01-07 07:47] VITALS: PULSE 93; RESP 16; O2SAT 94
[2023-01-07] MEDS: K and/or MAG REPLACEMENT MC SCH (08:00)
[2023-01-07] MEDS: levoTHYROXINE 25mcg tablet PO SCH (08:34)
[2023-01-07] MEDS: EMPAGLIFLOZIN 10 MG TABLET PO SCH (08:34)
[2023-01-07] MEDS: docusate sod 100mg capsule PO SCH (08:34)
[2023-01-07] MEDS: pantoprazole 40mg Tablet.DR PO SCH (08:34)
[2023-01-07] MEDS: metoprolol succinate 25mg (24-HOUR) SR. Tablet PO SCH (08:34)
[2023-01-07 08:35] VITALS: BP_SYST 106; PULSE 90
[2023-01-07] MEDS: spironolactone 25 MG tablet PO SCH (08:35)
[2023-01-07] MEDS: mupirocin 2% nasal ointment 1gm UD NS SCH (08:35)
[2023-01-07] MEDS: furosemide 20 MG/2 ML vial IV SCH (09:03)
--- NOTE | 2023-01-07 09:39 | NUR ---
Notified Dr Lopez of patient's 14 beat run of V-tack. No new orders noted at this time patient is asymptomatic.
--- NOTE | 2023-01-07 09:43 | NUR ---
Dr Lopez gave order to add on mag and phos labs to this mornings labs.
[2023-01-07 10:04] LABS: MAGNESIUM 2.2 MG/DL (1.5-2.4); PHOSPHORUS 3.4 MG/DL (2.3-4.5)
--- NOTE | 2023-01-07 11:00 | NUR ---
Patient refused VS at this time.
--- NOTE | 2023-01-07 11:53 | NUR ---
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
--- NOTE | 2023-01-07 14:45 | NUR ---
Patient transfered to [facility] with all belongings. IV removed and tele monitor removed and returned to television presenter. Left via [employer].
--- NOTE | 2023-01-07 14:45 | NUR ---
Report called to Giuseppe ANDERSON at [facility] all questions answered.
== END 2023-01-07 14:47 | DRG 291 ==
LOC: ER 16:37 → ED HOLD 01-04 00:24 → PCU 3S 01-04 08:29
PROVIDERS: ADMIT Family Medicine; ATTEND Internal Medicine
PROC: 5A09357 Assistance with Respiratory Ventilation, Less than 24 Consecutive Hours, Continuous Positive Airway Pressure (ICD-10-PCS; principal; 2023-01-05)
PROC: 5A09357 Assistance with Respiratory Ventilation, Less than 24 Consecutive Hours, Continuous Positive Airway Pressure (ICD-10-PCS; 2023-01-07)
DX: I13.0 Hypertensive heart and chronic kidney disease with heart failure and stage 1 through stage 4 chronic kidney disease, or unspecified chronic kidney disease (principal); I50.23 Acute on chronic systolic (congestive) heart failure; N17.9 Acute kidney failure, unspecified; N18.4 Chronic kidney disease, stage 4 (severe); I47.20 Ventricular tachycardia, unspecified; E87.1 Hypo-osmolality and hyponatremia; K74.60 Unspecified cirrhosis of liver; E03.9 Hypothyroidism, unspecified; E86.1 Hypovolemia; E88.09 Other disorders of plasma-protein metabolism, not elsewhere classified; G89.4 Chronic pain syndrome; F03.90 Unspecified dementia, unspecified severity, without behavioral disturbance, psychotic disturbance, mood disturbance, and anxiety; I25.10 Atherosclerotic heart disease of native coronary artery without angina pectoris; I48.91 Unspecified atrial fibrillation; J44.9 Chronic obstructive pulmonary disease, unspecified; R29.6 Repeated falls; Z79.01 Long term (current) use of anticoagulants; Z86.73 Personal history of transient ischemic attack (TIA), and cerebral infarction without residual deficits; Z95.0 Presence of cardiac pacemaker
CPT/HCPCS: 36415; 70450; 71045; 72125; 73090; 80053; 81001; 82948; 83735; 83880; 84100; 84484; 85007; 85025; 85379; 85610; 85730; 87081; 90715; 94760; 97116; 97161; 97530; 99285; A6222; A6223; A6258; A6260; A6446; A6449; G0378; J0690; J1940; J3475; J7030